=== PATIENT | male | born 1995 | race Caucasian/White ===

== ENCOUNTER 2020-07-23 09:16 | Emergency (ER) | payer OTHER ==
[~2020-07-23] VITALS: Ht 172.7 cm; Wt 86.4 kg
[2020-07-23 09:37] VITALS: BP 103/83
== END 2020-07-23 11:29 | disposition left against medical advice (07) ==
LOC: EMS 09:24
DX: F20.9 Schizophrenia, unspecified (principal); F15.90 Other stimulant use, unspecified, uncomplicated
CPT/HCPCS: 99284; Z7502